=== PATIENT | male | born 1985 | race Caucasian/White ===

== ENCOUNTER 2023-08-27 11:21 | Outpatient (OUT) | payer BC, SELFPAY ==
[2023-08-27 11:38] LABS: Basophils Absolute Auto 0.1 10^3/uL (0.0-0.1); Basophils Percent Auto 0.8 % (0.2-2.0); Eosinophils Absolute Auto 0.3 10^3/uL (0.0-0.7); Eosinophils Percent Auto 3.1 % (0.9-7.0); Hematocrit 37.3 % (42.0-54.0); Immature Granulocytes Abs Auto 0.01 10^3/uL (0.00-0.03); Immature Granulocytes Pct Auto 0.1 % (0.0-0.5); Lymphocytes Absolute Auto 2.3 10^3/uL (1.2-3.8); Lymphocytes Percent Auto 29.2 % (20.5-60.0); Mean Corpuscular HGB Conc 34.9 g/dL (29.9-35.2); Mean Corpuscular Hemoglobin 31.6 pg (25.9-34.0); Mean Corpuscular Volume 90.5 fL (80.0-94.0); Monocytes Absolute Auto 0.5 10^3/uL (0.3-0.8); Monocytes Percent Auto 6.8 % (1.7-12.0); Neutrophils Absolute Auto 4.8 10^3/uL (1.4-6.5); Platelet Count 267 10^3/uL (150-450); Red Blood Count 4.12 10^6/uL (4.70-6.10); Red Cell Distribution Width 12.9 % (11.0-15.0)
[2023-08-27 12:00] LABS: Alanine Aminotransferase 42 U/L (16-63); Albumin Globulin Ratio 1.3; Albumin Level 3.9 g/dL (3.4-5.0); Alkaline Phosphatase 45 U/L (46-116); Amylase 40 U/L (25-115); Anion Gap 10.1; Aspartate Amino Transferase 21 U/L (15-37); BUN Creatinine Ratio 31.3; Bilirubin Total 1.2 mg/dL (0.2-1.0); Calcium 9.2 mg/dL (8.5-10.1); Carbon Dioxide 29.3 mmol/L (21.0-32.0); Chloride 103 mmol/L (98-107); Estimated GFR (African America >60 (>=60); Estimated GFR (Non-African Ame >60 (>=60); Globulin 3.1 g/dL; Glucose 90 mg/dL (74-106); Potassium 4.4 mmol/L (3.5-5.1); Sodium 138 mmol/L (136-145)
[2023-08-28 04:07] LABS: CA 19-9 18 U/mL (0-35)
== END 2023-08-27 11:22 | disposition home or self-care (01) ==
LOC: LAB 11:24
PROVIDERS: PCP Family Medicine; Visit Provider Family Medicine
DX: R10.10 Upper abdominal pain, unspecified (principal)
CPT/HCPCS: 36415; 80053; 82150; 83690; 85025; 86301

== ENCOUNTER 2025-01-12 14:50 | Outpatient (OUT) | payer BC, SELFPAY ==
--- OUTSIDE RECORDS SUMMARY | 2025-01-07 10:15 | XMS_ITS ---
Author Organization [facility] in [place] Address [address] [place] [address] Care Team Providers Care Behavioral Health Clinician Name Role Phone Wilbersara Abraham Primary Care Provider Allergies Allergen (clinical drug ingredient) Drug/Non Drug Allergy documented on EMR Reaction Allergy Type Onset Date Status Penicillin Unknown Drug Allergy Active REASON FOR VISIT yearly labs, wants to get lungs checked out- left side of chest has been hurting in the lung area- also sick , head cold for a week and a half, Stopped smoking cigarettes and is just vaping- smoked for 15 years and then started started vaping Medications Medication SIG (Take, Route, Fr equency, Duration) Notes Start Date End Date Status levoFLOXacin 750 MG 1 tablet Orally Once a day; Duration: 10 day(s) 01/07/2025 Active predniSONE 20 MG 3 tablets Orally Onc e a day; Duration: 5 days 01/07/2025 Active Social History Tobacco Use: Social History Observation Description Date Details (start date - stop date) Current Smoker NA - NA Tobacco Use/Smoking Question Answer Notes Patient is a current smoker Tobacco use other than smoking: Question Answer Notes Are you an other tobacco user? Yes v ape Vital Signs Weight 164.0 lbs 01/07/2025 Height 71 in 01/07/2025 Blood pressure systolic 122 mm Hg 01/08/20 25 Blood pressure diastolic 78 mm Hg 025 BMI 22.87 kg/m2 01/07/2025 Encounters Encounter Location Date Provider Diagnosis [facility] [address] [place] [address] 01/07/2025 Abraham Kaur Chest wall pain R07. 89 and Well adult exam Z00.00 Assessments Encounter Date Diagnosis (ICD Code) Assessment Notes Treatment Notes Treatment Clinical Notes Section Notes 01/07/2025 Chest wall pain (ICD-10 - R07.89) concern for Vape lungs - 01/07/2025 Well adult exam (ICD-10 - Z00.00) 01/07/2025 Other Discussed increasing physical exercise and continuing/impl ementing a healthier diet. Plan Of Treatment Medication Medication Name Sig Start Date Stop Date Notes levoFLOXacin 750 MG 1 tablet Orally Once a day; Duration: 10 day(s) 01/07/2025 predniSONE 20 MG 3 tablets Orally Onc e a day; Duration: 5 days 01/07/2025 Treatment Notes Assessment Notes Chest wall pain concern for Vape elliott gs - Other Discussed increasing physical exercise and continuing/implementing a healthier diet. Pending Test Test Name Order Date HEMOGLOBIN A1C (GLYCO) 01/07/2025 LIPID PANEL (CHOL/TRIG/HDL/LDL) 01/08/[address] CHEST HI RESOLUTION 01/07/2025 THYROID PANEL (T4/TSH/FREE T3) 5 PSA, SCREENING 01/07/2025 CMP (COMP MET SULLIVAN) w/eGFR CKD-EPI 2024 CBC WITH DIFF 01/07/2025 Progress Notes * Lauro DE LA ROSA BDOB: [birth year] (39 yo M)Acc No.[id number]:01/07/2025 Progress Note Patient: Lauro DAVID Provider: Cachorro Kaur ([facility])MD :1985 A ge:39 Y S ex:Male Date:01/07/2025 Address:[address] [place] [address] Check In:01:46 PM ESTCheck O ut:02:27 PM EST Subjective: * Chief Complaints: * Y early labsWife wants to get lungs checked out- left side of chest has been hurting in the lung area- also sick , head cold for a week and a halfStopped smoking cigarettes and is just vaping- smoked for 15 years and then started started vaping * HPI: D epression Screening: PHQ-2 (2015 Edition) L ittle interest or pleasure in doing things??Not at all F eeling down, depressed, or hopeless? N ot at all T otal Score 0 cough - makeing chest pain wosrs - no CP iwth activity -. C hest Pain: The patient complains of c hest pain. The symptoms have been present for 1 -2 days . The symptoms are m ild. Symptomatic treatment has included n one. Associated symptoms include f atigue, chest tightness. * ROS: G eneral/Constitutional: Lightheadedness d enies. C hange in appetite d enies. W eight Change d enies. C ardiovascular: Irregular heartbeat d enies. S welling in hands/feet?denies. R espiratory: Shortness of breath d enies. S hortness of breath at rest d enies. W heezing d enies. N eurologic: Dizziness d enies. F ainting d enies. H eadache?denies. * Active Problem List R68.84 Jaw pain Modified On:07/31/2022 Status:confirmed Z20.828 Contact with and (gee spected) exposure to other viral communicable diseases Modified On:07/31/2022 Status:confirmed R07.9 Chest pain Modified On:07/31/2022 Status:confirmed R53.83 Fatigue Modified On:07/31/2022 Status:confirmed I10 Hypertension Modified On:07/31/2022 Status:confirmed R06.00 Dyspnea Modified On:07/31/2022 Status:confirmed Z80.0 Family history of ma lignant neoplasm of gastrointestinal tract Modified On:07/31/2022 Status:confirmed R63.4 Weight loss Modified On:07/31/2022 Status:confirmed Z00.00 Well adult Modified On:07/31/2022 Status:confirmed E66.3 Overweight Modified On:07/31/2022 Status:confirmed J45.41 Moderate persistent asthma with (acute) exacerbation Modified On:07/31/2022 Status:confirmed R07.89 Chest wall pain Modified On:07/31/2022 Status:confirmed R20.2 Paresthesia of upper extremity Modified On:07/31/2022 Status:confirmed R59.1 LA (lymphadenopathy) Modified On:07/31/2022 Status:confirmed G43.019 Intractable migraine without aura and without status migrainosus Modified On:08/01/2022 Status:confirmed F51.01 Primary insomnia Modified On:08/01/2022 Status:confirmed J01.90 Acute non-recurrent sinusitis, unspecified location Modified On:08/15/2023 Status:confirmed R09.81 Nasal congestion Modified On:08/15/2023 Status:confirmed R10.10 Upper abdominal pain Modified On:08/27/2023 Status:confirmed * Medical History: * Surgical History: T onsils and Addenoids out 1995Hernia repair 2012 * Hospitalization/Major Diagno stic Procedure: J Luis pizano going through rehab 2021 * Family History: F ather: , alcoh, alcoholismLiver issues. M other: , Lung FailurePancreatitisDiabetes. B rother(s): alive. S ister(s): alive. S on(s): alive. D zak(s): alive. 2 brother(s) , 1 sister(s) - healthy. 2 son(s) , 1 daughter(s) - healthy. . * Social History: T obacco Use: T obacco use other than smoking A re you an other tobacco user? Y es vape Tobacco Use/Smoking P atient is a c urrent smoker * Medications: D iscontinuedAzithromycin 250 MG Tablet 2 tabs today then 1 tab Orally daily Cefdinir 300 MG Capsule 2 capsule Orally once a day levoFLOXacin 750 MG Tablet 1 tablet Orally Once a day Protonix(Pantoprazole Sodium) 40 MG Tablet Delayed Release 1 tablet Orally Every Evening Medication List reviewed and reconciled with the patientDiscontinued Azithromycin 250 MG Tablet 2 tabs today then 1 tab Orally daily Discontinued Cefdinir 300 MG Capsule 2 capsule Orally once a day Discontinued levoFLOXacin 750 MG Tablet 1 tablet Orally Once a day Discontinued Protonix(Pantoprazole Sodium) 40 MG Tablet Delayed Release 1 tablet Orally Every Evening Medication List reviewed and reconciled with the patient * Allergies: P enicillin - Criticality Highno[Allergies Verified] Objective: * Vitals: W t:164.0lbs, Ht: 71 in, BP:122/78mm Hg, BMI:22.87Index, Ht-cm: 180.34 cm, Wt-k.39 kg. * Examination: G eneral Examination: GENERAL APPEARANCE: in no acute distress, well developed, well nourished. LUNGS: clear to auscultation bilaterally. CARDIO: S1, S2 normal, no murmurs, rubs, gallops. EXTREMITIES: no clubbing, cyanosis, or edema. NEUROLOGIC: alert, oriented to time, place, & person.? Assessment: * Assessment: 1. C hest wall pain - R07.89 (Primary) 2 . W ell adult exam - Z00.00 ? Plan: * Treatment: Notes: concern for Vape lungs - ??2.?Well adult exam?LAB: HEMOGLOBIN A1C (GLYCO) ?LAB: LIPID PANEL (CHOL/TRIG/HDL/LDL) ?LAB: THYROID PANEL (T4/TSH/FREE T3) ?LAB: PSA, SCREENING ?LAB: CMP (COMP MET SULLIVAN) w/eGFR CKD-EPI ?LAB: CBC WITH DIFF3.?Others? Notes:Discussed increasing physical exercise and continuing/implementing a healthier diet.?? * Procedure Codes: * * Sign off status: Completed Visit Status: C HK (Check Out) true * Provider: Cachorro Kaur ([facility])MD Date: 0 01/07/2025 Generated for Leander campos/Davina/eTransmitting on: 0 01/12/2025 02:52 PM EDT History and Physical Notes * HPI (History of Present Illness) Category Sub-Category Detail Notes Category Not es Chest Pain The patient complains of chest pain The symptoms have been present for 1-2 d ays The symptoms are mild Symptomatic treatment has included none Associated symptoms include fatigue, liliam st tightness Depression Screening PHQ-2 (2015 Edition) Little interest or pleasure in doing things?: Not at all cough - makeing chest pain wosrs - no CP iwth activity - Feeling down, depressed, or hopeless?: N ot at all Total Score: 0 Examination Category Sub-Category Detail Notes Category Not es General Examination GENERAL APPEARANCE: in no ac mansi distress, well developed, well nourished CARDIO: S1, S2 normal, no mu rmurs, rubs, gallops LUNGS: clear to auscultatio n bilaterally NEUROLOGIC: alert, oriented to t andrew, place, & person EXTREMITIES: no clubbing, cyanosi s, or edema
--- OUTSIDE RECORDS SUMMARY | 2025-01-12 14:53 | XMS_ITS | Clinical Summary ---
Author Organization [facility] Address [address] [place] [address] Phone Care Team Providers Care Rn Unit Manager Name Role Phone Unavailable Primary Care Provider Unavailabl e Social History Tobacco Use Types Packs/Day Years Used Date Smoking Tobacco: Never Assessed Sex and Gender Information Value Date Recorded Sex Assigned at Not on file Legal Sex Male 8:16 PM EST Gender Identity Not on file Sexual Orientation Not on file Last Filed Vital Signs Vital Sign Reading Time Taken Comments Blood Pressure 133/77 01/08/2020 2:08 PM EDT Pulse 85 01/08/2020 2:08 PM EDT Temperature 36.4 C (97.5 F) 01/08/2020 2:08 PM EDT Respiratory Rate 16 01/08/2020 2:08 PM EDT Oxygen Saturation 97% 01/08/2020 2:08 PM EDT Inhaled Oxygen Concentration - - Weight 74.8 kg (165 lb) 01/08/2020 2:08 PM EDT Height 180.3 cm (5' 11 ) 01/08/2020 2:08 PM EDT Body Mass Index 23.01 01/08/2020 2:08 PM EDT Plan of Treatment Not on file
--- OUTSIDE RECORDS SUMMARY | 2025-01-12 14:53 | XMS_ITS | Patient Health Record ---
Author Organization [facility] in [place] Address [address] [place] [address] Care Team Providers Care Job Service Consultant Name Role Phone Abraham Kaur Primary Care Provider Allergies Allergen (clinical drug ingredient) Drug/Non Drug Allergy documented on EMR Reaction Allergy Type Onset Date Status Penicillin Unknown Drug Allergy Active Reason For Referral No Information Medications Medication SIG (Take, Route, Fr equency, [...] an other tobacco user? Yes v ape Problems Problem Type SNOMED Code ICD Code Onset Dates Problem Status W/U Status Risk Notes Problem Overweight (682849604) Overweight (E66.3) Active confirmed Problem Primary insomnia (3475152) Primary insomnia (F51.01) Active confirmed Problem Exacerbation of moderate persistent asthma (disorder) (933784980) Moderate persistent asthma with (acute) exacerbation (J45.41) Active confirmed Problem Nasal congestion (75045114) Nasal congestion (R09.81) Active confirmed Problem Jaw pain (614649533) Jaw pain (R68.84) Active confirmed Problem Exposure to communicable disease (737004210) Contact with and (suspected) exposure to other viral communicable diseases (Z20.828) Active confirmed Problem Chest pain (43730239) Chest pain (R07.9) Active confirmed Problem Fatigue (31360706) Fatigue (R53.83) Active conf irmed Problem Hypertension (29122385) Hypertension (I10) Active confirmed Problem Dyspnea (740560591) Dyspnea (R06.00) Active con firmed Problem Family history of malignant neoplasm of gastrointestinal tract (651007522) Family history of malignant neoplasm of gastrointestinal tract (Z80.0) Active confirmed Problem Weight loss (021058462) Weight loss (R63.4) Active confirmed Problem Well adult (645733403) Well adult (Z00.00) Active confirmed Problem Refractory migraine without aura (779149614) Intractable migraine without aura and without status migrainosus (G43.019) Active confirmed Problem Chest wall pain (701472979) Chest wall pain (R07.89) Active confirmed Problem Paresthesia of upper extremity (82048670) Paresthesia of upper extremity (R20.2) Active confirmed Problem Upper abdominal pain (89194665) Upper abdominal pain (R10.10) Active confirmed Problem Acute sinusitis (80158208) Acute non-recurrent sinusitis, unspecified location (J01.90) Active confirmed Problem Lymphadenopathy (84990285) LA (lymphadenopathy) (R59.1) Active confirmed Vital Signs Blood pressure diastolic 78 mm Hg 01/07/2025 Height 71 in 01/07/2025 Blood pressure systolic 122 mm Hg 01/07/2025 Weight 164.0 lbs 01/07/2025 BMI 22.87 kg/m2 01/07/2025 Encounters Encounter Location Date Provider Diagnosis [facility] [address] [place] [address] 01/07/2025 Abraham Kaur Chest wall pain R07. 89 and Well adult exam Z00.00 [facility] [address] [place] [address] 04/21/2024 Abraham Kaur [facility] [address] [facility] [address] 04/24/2024 Abraham Kaur [facility] [address] [place] [address] 06/19/2024 Abraham Kaur Assessments Encounter Date Diagnosis (ICD Code) Assessment Notes Treatment Notes Treatment Clinical Notes Section Notes 01/07/2025 Chest wall pain (ICD-10 - R07.89) concern for Vape lungs - 01/07/2025 Well adult exam (ICD-10 - Z00.00) 01/07/2025 Other Discussed increasing physical exercise and continuing/impl ementing a healthier diet. Plan Of Treatment Pending Test Test Name Order Date CMP (COMPLETE METABOLIC PANEL) 4 CMP (COMPLETE METABOLIC PANEL) 3 AMYLASE 07/23/2022 HEMOGLOBIN A1C (GLYCO) 01/07/2025 HEMOGLOBIN A1C (GLYCO) 08/15/2023 H. PYLORI, IGG (HELICOBACTER PYLORI , IG G) 07/23/2022 LIPASE 07/23/2022 LIPID PANEL (CHOL/TRIG/HDL/LDL) 01/08/20 25 LIPID PANEL (CHOL/TRIG/HDL/LDL) 08/15/19 24 CBC NO DIFF 07/23/2022 CBC WITH DIFF 08/15/2023 XR Abdomen AP (1 view) (KUB) * 3 CA 19-9 08/27/2023 CT CHEST HI RESOLUTION 01/07/2025 US ABD 08/27/2023 THYROID PANEL (T4/TSH/FREE T3) 5 PSA, SCREENING 01/07/2025 CMP (COMP MET SULLIVAN) w/eGFR CKD-EPI 2024 CBC WITH DIFF 01/07/2025 Insurance Providers Payer Name Payer Address Payer Phone Subscriber Number Group Number Insured Name Patient Relationship to Insured Coverage Start Date Coverage End Date [employer] PPO PLUS LOCAL PLAN [address] [place] [address] [phone] [id number] Lauro De La Rosa Self - patient is the insured 3 Medical (General) History Medical History History ICD Code LA (lymphadenopathy) R59.1 Overweight E66.3 Well adult Z00.00 Hypertension I10 Chest pain R07.9 Contact with and (suspected) exposure to other viral communicable diseases Z20.828 Fatigue R53.83 Family history of malignant neoplasm of gastrointestinal tract Z80.0 Dyspnea R06.00 Weight loss R63.4 Moderate persistent asthma with (acute) exacerbation J45.41 Paresthesia of upper extremity R20.2 Jaw pain R68.84 Chest wall pain R07.89 Surgical History Surgery Date(Month/Year) Hernia repair 2012 Tonsils and Addenoids out 1994 Hospitalization History Reason Date(Month/Year) While going through rehab 2021
--- OUTSIDE RECORDS SUMMARY | 2025-01-12 14:56 | XMS_ITS | CCD ---
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 clinical signs and symptoms or necessary for patient management, should be tested with an alternative molecular assay. Negative results do not preclude SARS-CoV-2 infection and should not be used as the sole basis for patient management decisions. This test has been authorized by the FDA under an Emergency Use Authorization (EUA) for use by authorized laboratories. Fact sheet for Healthcare Providers: https://www.fda.gov/media/446638/download Fact sheet for Patients: https://www.fda.gov/media/551027/download METHODOLOGY: Isothermal Nucleic Acid Amplification Performed By: #### A LCOH #### [facility] [address] [place] [address] Comprehensive Metabolic Pane marcel 03-09-2021 Albumin [Mass/Vol] 5.1 g/dL Critically high 3.5-4.6 M [facility] Comment on above: Performed By: #### A LCOH #### [facility] [address] [place] [address] ALP [Catalytic activity/Vol] 70 U/L Normal 35-104 [facility] Comment on above: Performed By: #### A LCOH #### [facility] [address] [place] [address] ALT [Catalytic activity/Vol] 66 U/L Critically high 0-41 [facility] Comment on above: Performed By: #### A LCOH #### [facility] [address] [place] [address] Anion gap [Moles/Vol] 13 mmol/L Normal 9-15 [facility] Comment on above: Performed By: #### A LCOH #### [facility] [address] [place] [address] AST [Catalytic activity/Vol] 43 U/L Critically high 0-40 [facility] Comment on above: Result Comment: Spec imen hemolysis has exceeded the interference as defined by [place]. Value may be falsely increased. Suggest recollection if clinically indicated. Performed By: #### A LCOH #### [facility] [address] [place] [address] Bilirubin [Mass/Vol] 0.5 mg/dL Normal 0.2-0.7 [facility] Comment on above: Performed By: #### A LCOH #### [facility] [address] [place] [address] Calcium [Mass/Vol] 9.2 mg/dL Normal 8.5-9.9 [facility] Comment on above: Performed By: #### A LCOH #### [facility] [address] [place] [address] Chloride [Moles/Vol] 91 mmol/L Low 95-107 [facility] Comment on above: Performed By: #### A LCOH #### [facility] [address] [place] [address] CO2 [Moles/Vol] 25 mmol/L Normal 20-31 [facility] Comment on above: Performed By: #### A LCOH #### [facility] [address] [place] [address] Creatinine [Mass/Vol] 0.78 mg/dL Normal 0.70-1.20 [facility] Comment on above: Performed By: #### A LCOH #### [facility] [address] [place] [address] GFR >60.0 Normal >60 [facility] Comment on above: Result Comment: >60 mL/min/1.73m2 EGFR, calc. for ages 18 and older using the MDRD formula (not corrected for weight), is valid for stable renal function. Performed By: #### A LCOH #### [facility] [address] [place] [address] GFR/1.73 sq M.predicted among blacks MDRD (S/P/Bld) [Vol rate/Area] mL/min/{1.73_m2} Normal >60 [facility] Comment on above: Result Comment: >60 mL/min/1.73m2 EGFR, calc. for ages 18 and older using the MDRD formula (not corrected for weight), is valid for stable renal function. Performed By: #### A LCOH #### [facility] [address] [place] [address] Globulin (S) [Mass/Vol] 2.6 g/dL Normal 2.3-3.5 [facility] Comment on above: Performed By: #### A LCOH #### [facility] [address] [place] [address] Glucose [Mass/Vol] 143 mg/dL Critically high 70-99 M [facility] Comment on above: Performed By: #### A LCOH #### [facility] [address] [place] [address] Potassium [Moles/Vol] 3.6 mmol/L Normal 3.4-4.9 [facility] Comment on above: Performed By: #### A LCOH #### [facility] [address] [place] [address] Protein [Mass/Vol] 7.7 g/dL Normal 6.3-8.0 [facility] Comment on above: Performed By: #### A LCOH #### [facility] [address] [place] [address] Sodium [Moles/Vol] 129 mmol/L Low 135-144 [facility] Comment on above: Performed By: #### A LCOH #### [facility] [address] [place] [address] Urea nitrogen [Mass/Vol] 25 mg/dL Critically high 6-20 [facility] Comment on above: Performed By: #### A LCOH #### [facility] [address] [place] [address] Creatine Kinaseon 03-09-2021 CK [Catalytic activity/Vol] 213 U/L Critically high 0-190 [facility] Comment on above: Performed By: #### A LCOH #### [facility] [address] [place] [address] Salicylateon 03-09-2021 Salicylate 1.9 mg/dL Low 15.0-30.0 [facility] Comment on above: Result Comment: Anti -pyretic: 3.0-10.0 mg/dL Anti-inflammatory: 15.0-30.0 mg/dL Toxic: >30.0 mg/dL Performed By: #### A LCOH #### [facility] [address] [place] [address] TSH w/out Reflexon 1 TSH w/out Reflex 4.070 uIU/mL Critically high 0.440-3.86 M [facility] Comment on above: Performed By: #### C MP #### [facility] [address] [place] [address] UR Drugs of Abuse Panelon Drug Screen Comment see below Normal [facility] Comment on above: Result Comment: This method is a screening test to detect only these drug classes as part of a medical workup. Confirmatory testing by another method should be ordered if clinically indicated. Performed By: #### A LCOH #### [facility] [address] [place] [address] UR Amphetamines Screen Negative Normal Negative < [facility] Comment on above: Performed By: #### A LCOH #### [facility] [address] [place] [address] UR Barbiturates Screen Negative Normal Negative < [facility] Comment on above: Performed By: #### A LCOH #### [facility] [address] [place] [address] UR Benzo Screen Negative Normal Negative < [facility] Comment on above: Performed By: #### A LCOH #### [facility] [address] [place] [address] UR Cannabinoids Screen Negative Normal Negative < [facility] Comment on above: Performed By: #### A LCOH #### [facility] [address] [place] [address] UR Cocaine Screen Negative Normal Negative < [facility] Comment on above: Performed By: #### A LCOH #### [facility] [address] [place] [address] UR Methadone Screen Negative Normal Negative < [facility] Comment on above: Performed By: #### A LCOH #### [facility] [address] [place] [address] UR Opiates Screen Negative Normal Negative < [facility] Comment on above: Performed By: #### A LCOH #### [facility] [address] [place] [address] UR Oxycodone Screen Negative Normal Negative < [facility] Comment on above: Performed By: #### A LCOH #### [facility] [address] [place] [address] UR PCP Screen Negative Normal Negative < [facility] Comment on above: Performed By: #### A LCOH #### [facility] [address] [place] [address] UR Propoxyphene Screen Negative Normal Negative < [facility] Comment on above: Performed By: #### A LCOH #### [facility] [address] [place] [address] Urinalysis, reflex to cultur aury 03-09-2021 Urine Reflexed to Culture Not Indicated Normal [facility] Comment on above: Performed By: #### A LCOH #### [facility] [address] [place] [address] Bilirubin Ql (U) Negative Normal Negative [facility] Comment on above: Performed By: #### A LCOH #### [facility] [address] [place] [address] Clarity (U) Clear Normal Clear [facility] Comment on above: Performed By: #### A LCOH #### [facility] [address] [place] [address] Color (U) Yellow Normal Straw/Spink [facility] Comment on above: Performed By: #### A LCOH #### [facility] [address] [place] [address] Glucose Ql (U) Negative Normal Negative [facility] Comment on above: Performed By: #### A LCOH #### [facility] [address] [place] [address] Hemoglobin Ql (U) Negative Normal Negative [facility] Comment on above: Performed By: #### A LCOH #### [facility] [address] [place] [address] Ketones Ql (U) Negative Normal Negative [facility] Comment on above: Performed By: #### A LCOH #### [facility] [address] [place] [address] Leukocyte esterase Test strip Ql (U) Negative Normal Negative [facility] Comment on above: Performed By: #### A LCOH #### [facility] [address] [place] [address] Nitrite Ql (U) Negative Normal Negative [facility] Comment on above: Performed By: #### A LCOH #### [facility] [address] [place] [address] pH (U) 6.5 [pH] Normal 5.0-9.0 [facility] Comment on above: Performed By: #### A LCOH #### [facility] [address] [place] [address] Protein Ql (U) Negative Normal Negative [facility] Comment on above: Performed By: #### A LCOH #### [facility] [address] [place] [address] Specific gravity (U) [Rel density] 1.002 Normal 1.005-1.03 [facility] Comment on above: Performed By: #### A LCOH #### [facility] [address] [place] [address] Urobilinogen Qn (U) 0.2 {Rosa Elena'U}/dL Normal < 2.0 [facility] Comment on above: Performed By: #### A LCOH #### [facility] [address] [place] [address] COVID-19 Antigenon 1 COVID-19 Antigen Healthcare Worker?: N Kristina Reference Kristina Reference Negative SARS-CoV+SARS-CoV-2 (COVID-19) Ag [Presence] in Respiratory specimen by Rapid immunoassay Negative for SARS Antigen by BUZZ COVID19 Blank Space ------ Kristina Disclaimer Negative results, from patients with symptom Kristina Disclaimer onset beyond five days, should be treated as Kristina Disclaimer presumptive and confirmation with a molecular Kristina Disclaimer assay, if necessary, for patient management, Kristina Disclaimer may be performed. Negative results do not rule Kristina Disclaimer out COVID-19 and should not be used as the sole Kristina Disclaimer basis for treatment or patient management Kristina Disclaimer decisions, including infection control decisions. Kristina Disclaimer Negative results should be considered in the Kristina Disclaimer context of a patient's recent exposures, history Kristina Disclaimer and the presence of clinical signs and symptoms Kristina Disclaimer consistent with COVID-19. COVID19 Blank Space ------ Kristina Disclaimer The Kristina SARS Antigen BUZZ does not differentiate Kristina Disclaimer between SARS-CoV and SARS-CoV-2. COVID19 Blank Space ------ Kristina Disclaimer This test was developed and its performance Kristina Disclaimer characteristic determined by [employer] and Kristina Disclaimer validated at [facility]. This Kristina Disclaimer test has not been FDA cleared or approved. This Kristina Disclaimer test has been authorized by FDA under an Emergency Use Kristina Disclaimer Authorization (EUA). This test has been validated Kristina Disclaimer in accordance with the FDA's Guidance Document (Policy Kristina Disclaimer for Diagnostics Testing in Laboratories Certified to Kristina Disclaimer Perform High Complexity Testing under CLIA prior to Kristina Disclaimer Emergency Use Authorization for Coronavirus Kristina Disclaimer during the Public Health Emergency) Kristina Disclaimer issued on July 23, 2019. This test is only authorized Kristina Disclaimer for the duration of time the declaration that Kristina Disclaimer circumstances exist justifying the authorization of Kristina Disclaimer the emergency use of in vitro diagnostic tests for Kristina Disclaimer detection of SARS-CoV-2 virus and/or diagnosis of Kristina Disclaimer COVID-19 infection under section 564(b)(1) of the Kristina Disclaimer Act, 21 U.S.C. 360bbb-3(b)(1), unless the Kristina Disclaimer authorization is terminated or revoked sooner. PERFORMED BY: [facility] [address] [place] [address] PATHOLOGIST STORAGE BATTERY INSPECTOR AND TESTER DAMIEN RED M.D. [facility] Comment on above: Performed By: #### C OVID-19 KRISTINA, SOFIANEG #### [facility] [address] Kristina Ag Negativeon 02-03-20 Kristina Ag Negative Negative Normal Negative [facility] Comment on above: Result Comment: This is a duplicate Kristina SARS Antigen (BUZZ) result to be used for statistical tracking purpose only. PERFORMED BY: [place] [address] PATHOLOGIST STORAGE BATTERY INSPECTOR AND TESTER DAMIEN RED M.D. Performed By: #### C OVID-19 KRISTINA, SOFIANEG #### [address] Complete Blood Count Auto Di ffon 02-01-2021 Basophils (Bld) [#/Vol] 0.1 10*3/uL Normal 0.0-0.2 [facility] Comment on above: Result Comment: PERF ORMED BY: [place] [address] PATHOLOGIST STORAGE BATTERY INSPECTOR AND TESTER DAMIEN RED M.D. Performed By: #### C MP, CBC, ETOH #### [address] Basophils/100 WBC (Bld) 0.9 % Normal . [facility] Comment on above: Performed By: #### C MP, CBC, ETOH #### [address] Eosinophils (Bld) [#/Vol] 0.2 10*3/uL Normal 0.0-0.45 [facility] Comment on above: Performed By: #### C MP, CBC, ETOH #### [place] [address] [place] Eosinophils/100 WBC (Bld) 3.2 % Normal . [facility] Comment on above: Performed By: #### C MP, CBC, ETOH #### [address] Erythrocyte distribution width (RBC) [Ratio] 14.8 % Normal 12.0-14.8 [facility] Comment on above: Performed By: #### C MP, CBC, ETOH #### [facility] [address] Hematocrit (Bld) [Volume fraction] 36.2 % Low 38.8-50.0 [facility] Comment on above: Performed By: #### C MP, CBC, ETOH #### [address] Hemoglobin (Bld) [Mass/Vol] 12.4 g/dL Low 13.0-17.0 [facility] Comment on above: Performed By: #### C MP, CBC, ETOH #### [address] Lymphocytes (Bld) [#/Vol] 1.6 10*3/uL Normal 1.00-4.8 [facility] Comment on above: Performed By: #### C MP, CBC, ETOH #### [address] Lymphocytes/100 WBC (Bld) 24.6 % Normal . [facility] Comment on above: Performed By: #### C MP, CBC, ETOH #### [address] MCH (RBC) [Entitic mass] 31.9 pg Normal 27.5-35.2 [facility] Comment on above: Performed By: #### C MP, CBC, ETOH #### [address] MCV (RBC) [Entitic vol] 92.9 fL Normal 83.5-101 [facility] Comment on above: Performed By: #### C MP, CBC, ETOH #### [address] Mean Corpuscular HGB Conc 34.3 g/dL Normal 32.5-35.6 [facility] Comment on above: Performed By: #### C MP, CBC, ETOH #### [address] Monocytes (Bld) [#/Vol] 0.6 10*3/uL Normal 0.0-0.8 [facility] Comment on above: Performed By: #### C MP, CBC, ETOH #### [facility] [address] [place] [address] [place] Monocytes/100 WBC (Bld) 9.3 % Normal . [facility] Comment on above: Performed By: #### C MP, CBC, ETOH #### [facility] [address] [place] [address] [place] Neutrophils (Bld) [#/Vol] 4.1 10*3/uL Normal 1.8-7.7 [facility] Comment on above: Performed By: #### C MP, CBC, ETOH #### [facility] [address] [place] [address] [place] Neutrophils/100 WBC (Bld) 62.0 % Normal . [facility] Comment on above: Performed By: #### C MP, CBC, ETOH #### [facility] [address] [place] [address] [place] Nucleated RBC/100 WBC (Bld) [Ratio] 0.1 % Normal 0-0.5 [facility] Comment on above: Performed By: #### C MP, CBC, ETOH #### [facility] [address] [place] [address] [place] Platelet mean volume (Bld) [Entitic vol] 7.8 fL Normal 6.6-10.1 [facility] Comment on above: Performed By: #### C MP, CBC, ETOH #### [facility] [address] [place] [id number] [place] Platelets (Bld) [#/Vol] 196 10*3/uL Normal 150-450 [facility] Comment on above: Performed By: #### C MP, CBC, ETOH #### [facility] [address] [place] [address] [place] RBC (Bld) [#/Vol] 3.89 10*6/uL Low 3.90-5.60 [facility] Comment on above: Performed By: #### C MP, CBC, ETOH #### [facility] [address] [place] [address] [place] WBC (Bld) [#/Vol] 6.6 10*3/uL Normal 4.5-11.0 [facility] Comment on above: Performed By: #### C MP, CBC, ETOH #### [facility] [address] Comprehensive Metabolic Pane marcel 02-01-2021 Albumin [Mass/Vol] 3.6 g/dL Normal 3.2-5.5 [facility] Comment on above: Performed By: #### C MP, CBC, ETOH #### [address] Albumin/Globulin [Mass ratio] 1.6 {ratio} Normal [facility] Comment on above: Performed By: #### C MP, CBC, ETOH #### [address] ALP [Catalytic activity/Vol] 47 U/L Normal 32-92 [facility] Comment on above: Performed By: #### C MP, CBC, ETOH #### [address] ALT [Catalytic activity/Vol] 42 U/L Normal 10-60 [facility] Comment on above: Performed By: #### C MP, CBC, ETOH #### [address] AST [Catalytic activity/Vol] 22 U/L Normal 10-42 [facility] Comment on above: Performed By: #### C MP, CBC, ETOH #### [facility] [address] [place] [address] [place] Bilirubin [Mass/Vol] 0.5 mg/dL Normal 0.3-1.2 [facility] Comment on above: Performed By: #### C MP, CBC, ETOH #### [facility] [address] [place] [address] [place] Calcium [Mass/Vol] 9.0 mg/dL Normal 8.2-10.2 [facility] Comment on above: Performed By: #### C MP, CBC, ETOH #### [place] [address] [place] Chloride [Moles/Vol] 102 mmol/L Normal 95-114 [facility] Comment on above: Performed By: #### C MP, CBC, ETOH #### [facility] [address] CO2 [Moles/Vol] 27.8 mmol/L Normal 22.0-30.0 [facility] Comment on above: Performed By: #### C MP, CBC, ETOH #### [facility] [address] Creatinine [Mass/Vol] 0.81 mg/dL Normal 0.64-1.27 [facility] Comment on above: Performed By: #### C MP, CBC, ETOH #### [address] Creatinine Clr Calc Pharmacy 128.77 [facility] Comment on above: Result Comment: PERF ORMED BY: [place] [address] PATHOLOGIST STORAGE BATTERY INSPECTOR AND TESTER DAMIEN RED M.D. Performed By: #### C MP, CBC, ETOH #### [address] Estimated GFR ( Shelley > 60 [facility] Comment on above: Result Comment: GFR estimated reference range: According to KDOQI guidelines, <60 ml/min/1.73m2 is sufficient to diagnose a patient with chronic kidney disease. Performed By: #### C MP, CBC, ETOH #### [facility] [address] [place] [address] Estimated GFR (Non- Am > 60 [facility] Comment on above: Performed By: #### C MP, CBC, ETOH #### [facility] [address] [place] [address] [place] Globulin (S) [Mass/Vol] 2.2 g/dL [facility] Comment on above: Performed By: #### C MP, CBC, ETOH #### [facility] [address] [place] [address] [place] Glucose [Mass/Vol] 85 mg/dL Normal 70-100 [facility] Comment on above: Result Comment: [place] Glucose Reference Range is dependent on time and content of last meal. Glucose of more than 200 mg/dL in a nonstressed, ambulatory subject supports the diagnosis of Diabetes Mellitus. ADA recommended reference range Performed By: #### C MP, CBC, ETOH #### [facility] [address] Potassium [Moles/Vol] 4.2 mmol/L Normal 3.5-5.1 [facility] Comment on above: Performed By: #### C MP, CBC, ETOH #### [facility] [address] Protein [Mass/Vol] 5.8 g/dL Low 6.1-7.9 [facility] Comment on above: Performed By: #### C MP, CBC, ETOH #### [facility] [address] Sodium [Moles/Vol] 139 mmol/L Normal 136-146 [facility] Comment on above: Performed By: #### C MP, CBC, ETOH #### [facility] [address] [address] Urea nitrogen [Mass/Vol] 14 mg/dL Normal 9-23 [facility] Comment on above: Performed By: #### C MP, CBC, ETOH #### [facility] [address] [place] [address] [place] Drug Screen,Urineon 02-01-20 21 Amphetamine Screen,Urine Negative Normal Negative [facility] Comment on above: Performed By: #### U RDS, UA #### [place] [address] [place] Barbiturate Screen,Urine Negative Normal Negative [facility] Comment on above: Performed By: #### U RDS, UA #### [place] [address] [place] Benzodiazepines Screen,Urine Positive High Negative [facility] Comment on above: Performed By: #### U RDS, UA #### [place] [address] [place] Cannabinoid Screen,Urine Positive High Negative [facility] Comment on above: Result Comment: Thes e are unconfirmed results and should not be used for legal purposes. Drug Cut-Off Concentration: AMPH 1000 ng/mL TAI 200 ng/mL CHARMAINE 200 ng/mL COCM 300 ng/mL OP 300 ng/mL PCP 25 ng/mL THC 20 ng/mL PERFORMED BY: [place] [address] PATHOLOGIST [employer] DAMIEN RED M.D. Performed By: #### U RDS, UA #### [address] Cocaine Screen,Urine Negative Normal Negative [facility] Comment on above: Performed By: #### U RDS, UA #### [address] Opiate Screen,Urine Negative Normal Negative [facility] Comment on above: Performed By: #### U RDS, UA #### [address] Phencyclidine Screen,Urine Negative Normal Negative [facility] Comment on above: Performed By: #### U RDS, UA #### [address] Ethyl Alcohol Profileon 01-20 Ethanol [Mass/Vol] mg/dL Normal [facility] Comment on above: Performed By: #### C MP, CBC, ETOH #### [address] Percent Ethanol Not performed Normal [facility] Comment on above: Result Comment: PERF ORMED BY: [place] [address] PATHOLOGIST [employer] INSPECT[employer] DAMIEN RED M.D. Performed By: #### C MP, CBC, ETOH #### [address] Urinalysison 02-01-2021 Appearance (U) Clear Normal Clear [facility] Comment on above: Order Comment: Name Collection Type:: Clean-Voided Midstream Performed By: #### U RDS, UA #### [address] [place] [address] [place] Bilirubin,Urine Negative Normal Negative [facility] Comment on above: Order Comment: Name Collection Type:: Clean-Voided Midstream Performed By: #### U RDS, UA #### [place] [address] [place] Color (U) Yellow Normal Yellow [facility] Comment on above: Order Comment: Name Collection Type:: Clean-Voided Midstream Performed By: #### U RDS, UA #### [place] [address] [place] Glucose Ql (U) Normal Normal Normal [facility] Comment on above: Order Comment: Name Collection Type:: Clean-Voided Midstream Performed By: #### U RDS, UA #### [place] [address] [place] Ketones Ql (U) Trace High Negative [facility] Comment on above: Order Comment: Name Collection Type:: Clean-Voided Midstream Performed By: #### U RDS, UA #### [place] [address] [place] Leukocyte esterase Test strip Ql (U) Negative Normal Negative [facility] Comment on above: Order Comment: Name Collection Type:: Clean-Voided Midstream Performed By: #### U RDS, UA #### [place] [address] [place] Nitrite,Urine Negative Normal Negative [facility] Comment on above: Order Comment: Name Collection Type:: Clean-Voided Midstream Performed By: #### U RDS, UA #### [place] [address] [place] Occult Blood,Urine Negative Normal Negative [facility] Comment on above: Order Comment: Name Collection Type:: Clean-Voided Midstream Result Comment: PERF ORMED BY: [place] [address] PATHOLOGIST [employer] INSPECTOR AND TE[employer] DAMIEN RED M.D. Performed By: #### U RDS, UA #### [place] [address] [place] pH (U) 5.0 [pH] Normal 5.0-9.0 [facility] Comment on above: Order Comment: Name Collection Type:: Clean-Voided Midstream Performed By: #### U RDS, UA #### [facility] [address] [place] [address] [place] Protein,Urine Negative Normal Negative [facility] Comment on above: Order Comment: Name Collection Type:: Clean-Voided Midstream Performed By: #### U RDS, UA #### [facility] [address] Specificy Only,Urine 1.028 Normal 1.001-1.030 [facility] Comment on above: Order Comment: Name Collection Type:: Clean-Voided Midstream Performed By: #### U RDS, UA #### [address] Urobilinogen,Urine Normal Normal Normal [facility] Comment on above: Order Comment: Name Collection Type:: Clean-Voided Midstream Performed By: #### U RDS, UA #### [address] ECG 12 lead ECGon 12-19-2020 ECG 12 lead ECG [facility] [place] [address] [place] [address] Electrocardiograph Report Signed Patient: Lauro Webb MR#: [id number] : 1985 Acct:[id number] Age/Sex: 35 / M ADM Date: 12/19/20 Loc: ER Room: Type: [facility] ER Attending Dr: Ordering Provider: Efrain Malin DO Date of Service: 12/19/20 ECG/ECG 12 lead ECG: Head Injury Copies to: Test Reason : Blood Pressure : 119/085 mmHG Vent. Rate : 078 BPM Atrial Rate : 078 BPM P-R Int : 158 ms QRS Dur : 088 ms QT Int : 366 ms P-R-T Axes : 083 080 055 degrees QTc Int : 417 ms Normal sinus rhythm Right atrial enlargement Borderline ECG No previous ECGs available Confirmed by EFRAIN MALIN DO ([id number]) on 12/20/2020 6:03:59 PM Referred By: Electronically Signed By:EFRAIN MALIN DO Transcribed By: MUS Dictated By: Efrain Malin DO 12/19/201908 Signed By: 12/20/20 180 [facility] Alcoholon 12-18-2020 Blood Alcohol Concentration Not indicated Normal [facility] Comment on above: Performed By: #### A [facility] #### [facility] [address] [place] [address] Ethanol [Mass/Vol] mg/dL Normal [facility] Comment on above: Performed By: #### A [facility] #### [facility] [address] [place] [address] CBC Auto DifferentialOrdered By: Jennifer Chapman on 12-18-2020 Basophils (Bld) [#/Vol] 0.1 10*3/uL 0.0 - 0.2 K/uL [place] Phone: Basophils/100 WBC (Bld) 1.2 % [place] Phone: Eosinophils (Bld) [#/Vol] 0.3 10*3/uL 0.0 - 0.7 K/uL [place] Phone: Eosinophils/100 WBC (Bld) 3.5 % [place] [facility] Phone: Hematocrit (Bld) [Volume fraction] 42.6 % 42.0 - 52.0 % [place] Phone: Hemoglobin.gastrointes tinal spec 1 Ql (Stl) 14.6 g/dL 14.0 - 18.0 g/dL [place] Phone: Interpretation and review of laboratory results Abnormal [place] Phone: Lymphocytes (Bld) [#/Vol] 2.2 10*3/uL 1.0 - 4.8 K/uL [place] Phone: Lymphocytes/100 WBC (Bld) 25.9 % [place] Phone: MCH (RBC) [Entitic mass] 31.6 pg High 27.0 - 31.3 pg [place] Phone: MCHC (RBC) [Mass/Vol] 34.3 % 33.0 - 37.0 % [place] [facility] Phone: MCV (RBC) [Entitic vol] 92.0 fL 80.0 - 100.0 fL [place] Phone: Monocytes (Bld) [#/Vol] 0.7 10*3/uL 0.2 - 0.8 K/uL [place] Phone: Monocytes/100 WBC (Bld) 7.9 % [place] Phone: Neutrophils Absolute 5.3 K/uL 1.4 - 6 .5 K/uL [place] Phone: Neutrophils/100 WBC (Bld) 61.5 % [facility] Phone: Platelet distribution width (Bld) [Ratio] 12.6 % 11.5 - 14.5 % [place] Phone: Platelets (Bld)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
--- NOTE | 2025-01-12 15:02 | CT_ITS ---
The [address] [address] Patient Name: LARS WEBB MRN: [id number] date: 1985 Sex: M Assigned Patient Location: CT Current Patient Location: CT Accession/Order Number: [id number] Exam Date: 01/12/2025 15:12 Report Date: 01/12/2025 19:49 At the request of: BENITO URBINA MD Procedure: CT chest high res CT CHEST WITHOUT IV CONTRAST: High-resolution protocol. CLINICAL HISTORY: Chest Wall Pain Productive cough for one month. COMPARISON: None TECHNIQUE: Spiral images were obtained through the chest without IV contrast. High-resolution protocol was utilized with both supine and prone imaging. This CT exam was performed using one or more following dose reduction techniques: Automated exposure control, adjustment of the mA and/or kV according to patient size, or use of iterative reconstruction technique. FINDINGS: Mediastinum:Thoracic aorta appears normal in caliber. Pulmonary trunk appears nondilated. No pericardial effusion. No lymphadenopathy. The esophagus is grossly unremarkable. Lungs:No lung consolidation pneumothorax or pleural effusion. No suspicious pulmonary nodule or mass. Trachea and distal airways appear patent. No honeycombing. No bronchiectasis. No micronodules. No septal thickening. Abd:No acute findings. Soft tissues/Bones: No acute findings. Osseous structures demonstrate degenerative change. CT/CT chest high res IMPRESSION: No acute process. No CT evidence of interstitial lung disease. Impression dictated by: Eduin Livingston Jr., D.O. 01/12/2025 7:49 PM Dictation Location: [place] [place] Electronically authenticated by: [id number] Y Date: 01/12/2025 19:49
[2025-01-12 15:17] LABS: Hematocrit 41.6 % (42.0-54.0); Hemoglobin 14.6 g/dL (14.0-18.0); Immature Granulocytes Abs Auto 0.02 10^3/uL (0.00-0.03); Immature Granulocytes Pct Auto 0.3 % (0.0-0.5); Lymphocytes Absolute Auto 2.9 10^3/uL (1.2-3.8); Mean Corpuscular HGB Conc 35.1 g/dL (29.9-35.2); Mean Corpuscular Hemoglobin 31.1 pg (25.9-34.0); Mean Corpuscular Volume 88.5 fL (80.0-94.0); Platelet Count 259 10^3/uL (150-450); Red Blood Count 4.70 10^6/uL (4.70-6.10); White Blood Count 7.7 10^3/uL (4.0-11.0)
[2025-01-12 15:23] LABS: Alanine Aminotransferase 30 U/L (16-63); Albumin Globulin Ratio 1.3; Albumin Level 4.1 g/dL (3.4-5.0); Alkaline Phosphatase 47 U/L (46-116); Anion Gap 12.4; Aspartate Amino Transferase 17 U/L (15-37); Blood Urea Nitrogen 20.0 mg/dL (7.0-18.0); Calcium 8.5 mg/dL (8.5-10.1); Carbon Dioxide 26.2 mmol/L (21.0-32.0); Chloride 105 mmol/L (98-107); Estimated GFR (African America >60 (>=60 mL/min/1.73m^2); Estimated GFR (Non-African Ame >60 (>=60 mL/min/1.73m^2); Globulin 3.1 g/dL; Glucose 102 mg/dL (74-106); Potassium 3.6 mmol/L (3.5-5.1); Sodium 140 mmol/L (136-145); Total Protein 7.2 g/dL (6.4-8.2)
[2025-01-12 16:11] LABS: Cholesterol 131 mg/dL (<=200); Free T3 3.39 pg/mL (2.18-3.98); HDL Cholesterol 42 mg/dL (40-60); Thyroid Stimulating Hormone 0.704 uIU/mL (0.358-3.740); Triglycerides 47 mg/dL (<=150); VLDL CHOLESTEROL 9.4 mg/dL
== END 2025-01-12 14:51 | disposition home or self-care (01) ==
LOC: CT 14:50
PROVIDERS: PCP Family Medicine; Visit Provider Family Medicine
DX: Z00.00 Encounter for general adult medical examination without abnormal findings (principal); R07.89 Other chest pain
CPT/HCPCS: 36415; 71250; 80053; 80061; 83036; 84436; 84443; 84481; 85025; G0103